=== PATIENT | female | born 1965 | race American Indian/Alaskan Native ===

== ENCOUNTER 2021-08-07 16:26 | Emergency (ER) | payer SELFPAY ==
[2021-08-07 16:34] VITALS: BP 138/83
--- NOTE | 2021-08-07 17:10 | Emergency Department Report ---
ED Recheck HPI - General Chief Complaint: Recheck/Abnormal Lab/Rx Stated Complaint: OUT OF MEDS Time Seen by Provider: 08/07/21 16:54 Source: patient Mode of arrival: Ambulatory Limitations: No Limitations - History of Present Illness Initial Comments: Patient presents for medication refill. She states that she is on methylphenidate. She has run into problems getting this addressed with her regular doctor through [facility]. Apparently she was banned from that practice because she was upset. They would not give her visit. They would not call in the prescription. The were, according to her, making her jump through a lot of hoops. She got irate with the staff and apparently has been banned from that facility. She has an appointment in 2 days to see a new physician. She is hoping that she can get the medication to last her until that time. She has no chest pain or back pain. She is not vomiting. She is not suicidal homicidal. There is no history of dysuria or frequency. - Related Data Previous Rx's Medication Instructions Recorded Last Taken Type Methylphenidate [Ritalin] 10 mg PO BID #28 tablet 08/07/21 Unknown Rx Allergies Allergy/AdvReac Type Severity Reaction Status Date / Time lisinopril Allergy Swelling Verified 11/10/15 13:08 ED Review of Systems ROS: Stated complaint: OUT OF MEDS Other details as noted in HPI Comment: All other systems reviewed and negative Constitutional: denies: fever Eyes: denies: vision change ENT: denies: throat pain Respiratory: denies: cough Cardiovascular: denies: chest pain Endocrine: denies: unexplained weight loss Gastrointestinal: denies: abdominal pain Genitourinary: denies: dysuria Musculoskeletal: denies: back pain Skin: denies: rash Neurological: denies: headache Psychiatric: denies: auditory hallucinations, suicidal thoughts Hematological/Lymphatic: denies: easy bruising ED Past Medical Hx - Past Medical History Additional medical history: ADHD - Family History Family history: no significant - Medications Home Medications: Home Medications Medication Instructions Recorded Confirmed Last Taken Type Methylphenidate [Ritalin] 10 mg PO BID #28 tablet 08/07/21 Unknown Rx ED Physical Exam - General Limitations: No Limitations, Other (Pulse ox noted and normal) General appearance: alert, in no apparent distress - Head Head exam: Present: atraumatic, normocephalic - Eye Eye exam: Present: normal appearance, EOMI - ENT ENT exam: Present: normal orophraynx, normal external ear exam - Neck Neck exam: Present: normal inspection - Respiratory Respiratory exam: Absent: respiratory distress - Cardiovascular Cardiovascular Exam: Absent: JVD - Extremities Exam Extremities exam: Present: full ROM - Back Exam Back exam: Present: full ROM - Neurological Exam Neurological exam: Present: alert, oriented X3, CN II-XII intact, normal gait - Psychiatric Psychiatric exam: Present: normal affect, normal mood - Skin Skin exam: Present: warm, dry ED Course Vital Signs 08/07/21 16:31 Temperature 98.4 F Pulse Rate 65 Respiratory 16 Rate Blood Pressure 138/83 O2 Sat by Pulse 100 Oximetry - Reevaluation(s) Reevaluation #1: 08/07/21 18:14 Patient was discharged ED Recheck MDM - Medical Decision Making Patient presented for a prescription refill. She is not suicidal homicidal. There is no evidence of acute delusion. She certainly does not have symptoms of withdrawal. Patient was treated symptomatically and referred for outpatient evaluation. She has an appointment on to see a new physician and was instructed to keep that appointment. Critical Care Time: No Critical care attestation.: If time is entered above; I have spent that time in minutes in the direct care of this critically ill patient, excluding procedure time. ED Disposition Clinical Impression: Medication refill Disposition: HOME / SELF CARE / HOMELESS Is pt being admited?: No Condition: Stable Additional Instructions: Return for problems. Prescriptions: Methylphenidate [Ritalin] 10 mg PO BID #28 tablet Referrals: ARLETH FISCHER MD [Staff Physician] - 3-5 Days
== END 2021-08-07 18:59 | disposition home or self-care (01) ==
LOC: ED 16:26
DX: Z00.00 Encounter for general adult medical examination without abnormal findings (principal); Z76.0 Encounter for issue of repeat prescription
CPT/HCPCS: 99282